=== PATIENT | male | born 1940 | race Caucasian/White ===

== ENCOUNTER → 2017-12-25 | Outpatient (CLI) | payer OTHER | END | disposition home or self-care (01) | LOC: PCVCCLINIC 10:50 | PROVIDERS: ATTEND Internal Medicine | DX: I82.5Y3 Chronic embolism and thrombosis of unspecified deep veins of proximal lower extremity, bilateral (principal); I95.1 Orthostatic hypotension; E78.5 Hyperlipidemia, unspecified; D68.62 Lupus anticoagulant syndrome; Z87.898 Personal history of other specified conditions; Z95.828 Presence of other vascular implants and grafts; Z79.01 Long term (current) use of anticoagulants; Z79.899 Other long term (current) drug therapy | CPT/HCPCS: 80061; 93005; G0463 ==